=== PATIENT | male | born 1960 | race Caucasian/White ===

== ENCOUNTER 2017-11-03 15:06 | Inpatient (IN) ==
[2017-11-03 16:01] LABS: Basophils % 0.2 % (0.0-0.8); Eosinophils % 0.2 % (0.00-10.9); Hematocrit 46.3 VOL% (42.0-52.0); Hemoglobin 16.2 GM/DL (14.0-18.0); Immature Granulocytes % 0.2 %; Immature Granulocytes Absolute 0.01 #; Lymphocytes # 1.1 10*3/uL (1.4-4.0); Lymphocytes % 21.1 % (21.2-54.2); Mean Corpuscular Hemoglobin 31 PG (27-34); Mean Platelet Volume 10.4 FL (9.6-12.0); Monocytes # 0.5 10*3/uL (0.11-0.8); Monocytes % 10.3 % (1.7-12.7); Neutrophils # 3.6 10*3/uL (1.4-7.4); Platelet Count 151 T/CUMM (130-400); Red Blood Count 5.32 MC/CUMM (3.8-5.5); Red Cell Distribution Width 13.3 % (9.3-17.3); White Blood Count 5.2 T/CUMM (4-12)
[2017-11-03 16:17] LABS: PT Patient Result 10.6 SECS
[2017-11-03 16:29] LABS: Alanine Aminotransferase 197 U/L (16-61); Albumin 3.6 G/DL (3.4-5.0); Alkaline Phosphatase 63 U/L (45-117); Aspartate Amino Transferase 167 U/L (0-37); Blood Urea Nitrogen 9 MG/DL (7-18); Calcium 8.7 MG/DL (8.5-10.1); Glucose 114 MG/DL (74-106); Magnesium 2.2 MG/DL (1.8-2.4); Osmolality,Calculated 269.1 MOS/KG (273-304); Potassium 3.6 MMOL/L (3.5-5.1); Sodium 135 MMOL/L (136-145); Total Protein 7.6 G/DL (6.4-8.3); Troponin I Only < 0.015 NG/ML (0.00-0.045)
[2017-11-03] MEDS ORDERED: HYDROmorphone 2 MG/1 ML VIAL IV STA (20:29)
[2017-11-03] MEDS ORDERED: ONDANSETRON 4 MG/2 ML VIAL IV STA (20:29)
[2017-11-03] MEDS ORDERED: SODIUM CHLORIDE 0.9% 1,000 ML IV STA (20:29)
[2017-11-03] MEDS ORDERED: hydrALAZINE 20 MG/1 ML VIAL IV STA (20:33)
[2017-11-03] MEDS ORDERED: HYDROmorphone 2 MG/1 ML VIAL ONE (20:34)
[2017-11-03] MEDS ORDERED: ONDANSETRON 4 MG/2 ML VIAL ONE (20:34)
[2017-11-03] MEDS ORDERED: hydrALAZINE 20 MG/1 ML VIAL ONE (20:36)
[2017-11-04] MEDS: ALBUTEROL/IPRATROPIUM 3 ML NEB RESP TX SCH ×4 (00:25→20:00)
[2017-11-04] MEDS: hydrALAZINE 20 MG/1 ML VIAL IV PRN ×3 (02:58→21:01)
[2017-11-04] MEDS: MORPHINE 2 MG/1 ML SYRINGE IV PRN ×4 (03:01→21:52)
[2017-11-04 03:29] LABS: Barbiturates Screen,Urine Negative (Negative); Benzodiazepines Screen,Urine Negative (Negative); Cannabinoid Screen,Urine Negative (Negative); Opiate Screen,Urine Positive (Negative); Phencyclidine Screen,Urine Negative (Negative)
[2017-11-04 03:37] LABS: Apearance,Urine CLEAR (Clear); Bilirubin,Urine Negative (Negative); Blood, Urine Negative (Negative); Glucose,Urine (UA) Negative (Negative); Ketones,Urine Negative (Negative); Mucus,Urine Occasional /LPF (Occasional); Nitrite,Urine Negative (Negative); Protein,Urine Negative; Urine Color Yellow (Yellow); Urine Specific Gravity 1.013 (1.001-1.035); Urine Urobilinogen < 2.0 EU/DL (0.2-1.0); WBC,Urine 1 /HPF (0-6)
[2017-11-04] MEDS: ONDANSETRON 4 MG/2 ML VIAL IV PRN ×3 (06:05→21:00)
[2017-11-04 06:20] LABS: Basophils % 0.2 % (0.0-0.8); Eosinophils % 0.6 % (0.00-10.9); Hematocrit 41.7 VOL% (42.0-52.0); Hemoglobin 14.5 GM/DL (14.0-18.0); Immature Granulocytes % 0.4 %; Immature Granulocytes Absolute 0.02 #; Lymphocytes # 1.5 10*3/uL (1.4-4.0); Lymphocytes % 30.7 % (21.2-54.2); Mean Corpuscular HGB Conc 34.8 GM/DL (32-36); Mean Corpuscular Hemoglobin 31 PG (27-34); Mean Corpuscular Volume 88.3 FL (87-102); Mean Platelet Volume 10.1 FL (9.6-12.0); Monocytes # 0.6 10*3/uL (0.11-0.8); Monocytes % 11.9 % (1.7-12.7); Neutrophils # 2.7 10*3/uL (1.4-7.4); Neutrophils % 56.2 % (38.7-73.9); Platelet Count 134 T/CUMM (130-400); Red Blood Count 4.72 MC/CUMM (3.8-5.5); Red Cell Distribution Width 13.6 % (9.3-17.3); White Blood Count 4.9 T/CUMM (4-12)
[2017-11-04 07:00] LABS: Albumin 3.1 G/DL (3.4-5.0); Bilirubin,Total 0.6 MG/DL (0.2-1.0); Calcium 7.9 MG/DL (8.5-10.1); Osmolality,Calculated 276.5 MOS/KG (273-304); Potassium 3.5 MMOL/L (3.5-5.1); Total Protein 6.2 G/DL (6.4-8.3)
[2017-11-04 07:49] LABS: Hepatitis A Ab IgM Quant 0.07 Index; Hepatitis A Ab IgM Result Negative (Negative); Hepatitis B Core IgM Quant 0.16 Index; Hepatitis B Core IgM Result Negative (Negative); Hepatitis B Surface Ag Quant 0.26 Index; Hepatitis B Surface Ag Result Negative (Negative); Hepatitis C Virus Ab Quant 0.03 Index; Hepatitis C Virus Ab Result Negative (Negative)
[2017-11-04] MEDS ORDERED: ENOXAPARIN 40 MG/0.4 ML SYRINGE SUBCUT SCH (09:00)
[2017-11-04] MEDS: PANTOPRAZOLE 40 MG VIAL IV SCH (09:11)
[2017-11-04 12:54] LABS: % Iron Saturation 15.4 % (18-50); Ferritin 700.4 ng/ml (26-388)
[2017-11-04] MEDS ORDERED: diphenhydrAMINE 50 MG/1 ML VIAL IV ONE (13:51)
[2017-11-04] MEDS ORDERED: LORazepam 2 MG/1 ML VIAL IV ONE (13:51)
[2017-11-04] MEDS ORDERED: DIAZEPAM 10 MG/2 ML SYRINGE IV ONE (14:11)
[2017-11-04] MEDS: LEVOFLOXACIN INJ 750 MG in PREMIX 1 EACH IV SCH (15:34)
[2017-11-04] MEDS: ENOXAPARIN 40 MG/0.4 ML SYRINGE SUBCUT SCH (21:55)
[2017-11-05] MEDS: ALBUTEROL/IPRATROPIUM 3 ML NEB RESP TX SCH ×4 (00:52→19:52)
[2017-11-05] MEDS ORDERED: hydrALAZINE 20 MG/1 ML VIAL IV ONE (01:30)
[2017-11-05] MEDS: MORPHINE 2 MG/1 ML SYRINGE IV PRN ×4 (03:41→23:45)
[2017-11-05 05:46] LABS: Albumin 3.2 G/DL (3.4-5.0); Bilirubin,Direct 0.21 MG/DL (0.0-0.20); Bilirubin,Indirect 0.3 MG/DL (0.0-1.0); Bilirubin,Total 0.5 MG/DL (0.2-1.0); Total Protein 6.6 G/DL (6.4-8.3)
[2017-11-05] MEDS: ONDANSETRON 4 MG/2 ML VIAL IV PRN ×2 (07:52→12:24)
[2017-11-05] MEDS: PANTOPRAZOLE 40 MG VIAL IV SCH (09:23)
[2017-11-05] MEDS ORDERED: HYDROmorphone 2 MG/1 ML VIAL IV PRN ×2 (11:36→11:37)
[2017-11-05] MEDS: ALPRAZolam 0.5 MG TABLET PO PRN (12:24)
[2017-11-05] MEDS: LEVOFLOXACIN INJ 750 MG in PREMIX 1 EACH IV SCH (12:25)
[2017-11-05] MEDS: HYDROcod/ACETAMIN 7.5-325 MG/15 ML UDCUP PO PRN ×2 (16:25→21:28)
[2017-11-05] MEDS: ENOXAPARIN 40 MG/0.4 ML SYRINGE SUBCUT SCH (21:31)
[2017-11-06] MEDS: ALBUTEROL/IPRATROPIUM 3 ML NEB RESP TX SCH ×4 (00:28→19:53)
[2017-11-06] MEDS: MORPHINE 2 MG/1 ML SYRINGE IV PRN ×4 (04:18→18:06)
[2017-11-06] MEDS: ALPRAZolam 0.5 MG TABLET PO PRN ×2 (04:22→16:07)
[2017-11-06] MEDS: PANTOPRAZOLE 40 MG VIAL IV SCH (08:33)
[2017-11-06] MEDS ORDERED: LIDOCAINE 4% TOP SOLN 50 ML BOTTLE TOP PRN (09:05)
[2017-11-06] MEDS ORDERED: Tadalafil [Adcirca] 20 MG PO PRN (09:05)
[2017-11-06] MEDS ORDERED: PROPOFOL 200 MG/20 ML VIAL IV ONE (10:49)
[2017-11-06] MEDS ORDERED: LIDOCAINE 2% 5 ML VIAL ONE (10:49)
[2017-11-06] MEDS ORDERED: ALBUTEROL 2.5 MG/3 ML NEB RESP TX ONE (11:30)
[2017-11-06] MEDS: LEVOFLOXACIN INJ 750 MG in PREMIX 1 EACH IV SCH (12:41)
[2017-11-06] MEDS: ONDANSETRON 4 MG/2 ML VIAL IV PRN (12:41)
[2017-11-06] MEDS: HYDROcod/ACETAMIN 7.5-325 MG/15 ML UDCUP PO PRN (14:56)
[2017-11-06] MEDS: BACLOFEN 10 MG TABLET PO SCH ×2 (14:56→22:34)
[2017-11-06] MEDS: ENOXAPARIN 40 MG/0.4 ML SYRINGE SUBCUT SCH (22:04)
[2017-11-06] MEDS: oxyCODONE IR 5 MG TABLET PO SCH (22:32)
[2017-11-07] MEDS: ALBUTEROL/IPRATROPIUM 3 ML NEB RESP TX SCH ×2 (01:25→07:04)
[2017-11-07] MEDS: HYDROcod/ACETAMIN 7.5-325 MG/15 ML UDCUP PO PRN ×2 (03:41→13:39)
[2017-11-07 07:13] LABS: Basophils % 0.5 % (0.0-0.8); Eosinophils # 0.1 10*3/uL (0.0-0.87); Eosinophils % 2.4 % (0.00-10.9); Hematocrit 47.5 VOL% (42.0-52.0); Hemoglobin 15.5 GM/DL (14.0-18.0); Immature Granulocytes % 0.3 %; Immature Granulocytes Absolute 0.02 #; Lymphocytes # 1.6 10*3/uL (1.4-4.0); Lymphocytes % 26.6 % (21.2-54.2); Mean Corpuscular HGB Conc 32.6 GM/DL (32-36); Mean Corpuscular Hemoglobin 31 PG (27-34); Mean Corpuscular Volume 93.5 FL (87-102); Monocytes # 0.6 10*3/uL (0.11-0.8); Monocytes % 10.9 % (1.7-12.7); Neutrophils # 3.5 10*3/uL (1.4-7.4); Neutrophils % 59.3 % (38.7-73.9); Platelet Count 179 T/CUMM (130-400); Red Blood Count 5.08 MC/CUMM (3.8-5.5); Red Cell Distribution Width 13.8 % (9.3-17.3); White Blood Count 5.9 T/CUMM (4-12)
[2017-11-07 07:34] LABS: Calcium 8.7 MG/DL (8.5-10.1); Osmolality,Calculated 282.1 MOS/KG (273-304); Potassium 4.4 MMOL/L (3.5-5.1)
[2017-11-07] MEDS: PANTOPRAZOLE 40 MG VIAL IV SCH (08:40)
[2017-11-07] MEDS: BACLOFEN 10 MG TABLET PO SCH ×2 (08:41→08:51)
[2017-11-07] MEDS: oxyCODONE IR 5 MG TABLET PO SCH (08:41)
[2017-11-07] MEDS: ALPRAZolam 0.5 MG TABLET PO PRN ×2 (08:50→13:39)
[2017-11-07] MEDS ORDERED: TESTOSTERONE 25 MG TOP SCH (09:00)
[2017-11-07] MEDS ORDERED: VALSARTAN 80 MG TABLET PO SCH (09:00)
[2017-11-07 09:20] LABS: Albumin 3.5 G/DL (3.4-5.0); Bilirubin,Direct 0.23 MG/DL (0.0-0.20); Bilirubin,Indirect 0.5 MG/DL (0.0-1.0); Bilirubin,Total 0.7 MG/DL (0.2-1.0); Total Protein 7.3 G/DL (6.4-8.3)
[2017-11-07] MEDS: LEVOFLOXACIN INJ 750 MG in PREMIX 1 EACH IV SCH (11:34)
[2017-11-07 13:17] VITALS: BP 137/83
== END 2017-11-07 14:10 | disposition home or self-care (01) | DRG 392 ==
LOC: N.ED 15:06 → N.EDINP 15:06 → N.4E 23:44 → SUATTDRO 11-05 11:08
PROVIDERS: ADMIT Internal Medicine